=== PATIENT | male | born 1990 | race Caucasian/White ===

== ENCOUNTER 2017-01-21 17:02 | Emergency (ER) | payer BC ==
--- NOTE | 2017-01-21 17:51 | Emergency Department Record ---
History of Present Illness - General Chief complaint: Abscess Stated complaint: PAINFUL LUMP ON BACK OF NECK Time Seen by Provider: 01/21/17 17:29 Source: Patient Mode of Arrival: Ambulatory Limitations: No limitations - History of Present Illness Initial comments: 26 yo male presents with a painful lump on the back of his neck for the last 1.5 weeks. The area has now become warm, red, and tender. NO drainage. He has had similar tender areas in the past but they usually resolve on their own. No fevers. MD complaint: Abscess/boil Onset/Timin -: Days(s) Severity: Moderate Severity scale (1-10): 7 Quality: Other Consistency: Constant Improves with: None Worsens with: None Context: None Associated symptoms: Denies other symptoms Treatments Prior to Arrival: None - Related Data Previous Rx's Medication Instructions Recorded Clindamycin HCl 300 mg PO Q6H #28 capsule 01/21/17 Hydrocodone/Acetaminophen [[place] 1 each PO Q6H #12 tablet 01/21/17 5-325 Tablet] Allergies Allergy/AdvReac Type Severity Reaction Status Date / Time No Known Allergies Allergy Unverified 03/17/15 18:53 Travel Screening - Travel/Exposure Within Last 30 Days Have you traveled within the last 30 days?: No - Travel/Exposure Within Last Year Have you traveled outside the [place] in the last year?: No - Additonal Travel Details Have you been exposed to anyone with a communicable illness?: No - Travel Symptoms Symptom Screening: None Review of Systems Constitutional: Denies: Chills, Fever, Weakness Eyes: Denies: Eye discharge, Eye pain ENT: Denies: Congestion, Throat pain Respiratory: Denies: Cough, Dyspnea Cardiovascular: Denies: Chest pain, Syncope Endocrine: Denies: Fatigue Gastrointestinal: Denies: Abdominal pain, Diarrhea, Nausea, Vomiting Genitourinary: Denies: Dysuria, Frequency, Hematuria Musculoskeletal: Reports: As per HPI, Neck pain. Denies: Arthralgia, Back pain , Myalgia Skin: Reports: As per HPI, Change in color, Lesions Neurological: Denies: Abnormal gait, Confusion, Headache Psychiatric: Denies: Anxiety Hematological/Lymphatic: Denies: Blood Clots, Easy bleeding, Easy bruising, Swollen glands Past Medical History - SOCIAL HISTORY Smoking Status: Never smoker Alcohol Use: Occasional Drug Use: None - RESPIRATORY Hx Respiratory Disorders: No - CARDIOVASCULAR Hx Cardio Disorders: No - NEURO Hx Neuro Disorders: No - GI Hx GI Disorders: No - Hx Genitourinary Disorders: No - ENDOCRINE Hx Endocrine Disorders: No - MUSCULOSKELETAL Hx Musculoskeletal Disorders: No - PSYCH Hx Psych Problems: No - HEMATOLOGY/ONCOLOGY Hx Hematology/Oncology Disorders: No Family Medical History Any Significant Family History?: No Physical Exam - General General Appearance: Alert, Oriented x3, Cooperative, No acute distress Limitations: No limitations - Head Head exam: Normal inspection - Eye Eye exam: Normal appearance. negative: Conjunctival injection, Periorbital swelling - ENT ENT exam: Normal exam, Mucous membranes moist Ear exam: Normal external inspection Nasal Exam: Normal inspection Mouth exam: Normal external inspection - Neck Neck exam: Full ROM, Other (3cm by 2cm right posterior warm, red, tender area , no draining.). negative: Normal inspection, Lymphadenopathy - Respiratory Respiratory exam: Normal lung sounds bilaterally. negative: Respiratory distress - Cardiovascular Cardiovascular Exam: Regular rate, Normal rhythm, Normal heart sounds - Rectal Rectal exam: Deferred - exam: Deferred - Extremities Extremities exam: negative: Normal inspection Image of Full Body: 1 - 2x3cm area of erythema, tenderness, swelling, warmth - Back Back exam: Reports: Normal inspection - Neurological Neurological exam: Alert, Oriented X3 - Psychiatric Psychiatric exam: negative: Agitated, Anxious - Skin Type of lesion: Abscess (right posterior neck) Course Vital Signs 01/21/17 17:09 Temperature 99.1 F Pulse Rate 89 Respiratory 20 Rate Blood Pressure 142/78 Pulse Ox 96 - Reevaluation(s) Reevaluation #1: I used the bedside US to locate the area On bedside US the area appeared to be a fluid collection likely abscess based on the physical exam Betadine Prep Lidocaine 1% with epi used local 1.5ml 18 guage needle was initially used to decompress the area. 6ml of pus was extracted 11 blade was used to open up the area Remaining pus then blood was expressed with good results A culture was obtained On bedside US no additional fluid collection were identified. 01/21/17 17:57 Disposition Disposition: Discharge Clinical Impression: Abscess Disposition: Home, Self-Care Condition: (1) Good Instructions: Abscess Incision and Drainage (ED), Abscess (ED) Additional Instructions: Return immediately if worse, swelling, fever or pain Clean the area in a warm shower twice daily Take the Clindamycin every 6 hours Prescriptions: Clindamycin HCl 300 mg PO Q6H #28 capsule Hydrocodone/Acetaminophen [[place] 5-325 Tablet] 1 each PO Q6H #12 tablet Forms: Patient Portal Access Time of Disposition: 18:00 Quality - Quality Measures Quality Measures: N/A - Blood Pressure Screening Does Patient Have Any of the Following: No Blood Pressure Classification: Hypertensive Reading Systolic Measurement: 142 Diastolic Measurement: 78 Screening for High Blood Pressure: < Pre-Hypertensive BP, F/U Documented > [ [id number]] Pre-Hypertensive Follow-up Interventions: Referral to alternative/primary care provider.
[2017-01-21] MEDS: CLINDAMYCIN 150 MG CAP PO ONE (17:56)
== END 2017-01-21 18:09 | disposition home or self-care (01) ==
LOC: ER 17:02
DX: L02.11 Cutaneous abscess of neck (principal)
CPT/HCPCS: 10060; 99284